=== PATIENT | female | born 1980 | race Caucasian/White ===

== ENCOUNTER 2018-03-27 03:56 | Emergency (ER) | payer SELFPAY ==
[~2018-03-27] VITALS: Ht 170.2 cm; Wt 73.5 kg
[2018-03-27 04:10] VITALS: BP 129/68
[2018-03-27] MEDS ORDERED: HYDROCODONE/APAP 10/325MG 1 EA TABLET PO ONE (04:30)
[2018-03-27] MEDS ORDERED: ONDANSETRON 4 MG TAB.RAPDIS SL ONE (04:30)
[2018-03-27] MEDS ORDERED: HYDROCODONE/APAP 10/325MG 1 EA TABLET ONE (04:42)
[2018-03-27] MEDS ORDERED: ONDANSETRON 4 MG TAB.RAPDIS ONE (04:42)
--- NOTE | 2018-03-27 04:58 | NUR ---
Patient eloped from facility. ER MD notified.
== END 2018-03-27 05:01 | disposition left against medical advice (07) ==
LOC: ER 03:58
DX: S90.122A Contusion of left lesser toe(s) without damage to nail, initial encounter (principal); M54.40 Lumbago with sciatica, unspecified side; W01.0XXA Fall on same level from slipping, tripping and stumbling without subsequent striking against object, initial encounter; Y93.89 Activity, other specified; Y92.89 Other specified places as the place of occurrence of the external cause; Y99.8 Other external cause status
CPT/HCPCS: 99282; A4606; Q0162; Z7610